=== PATIENT | female | born 1935 | race Caucasian/White ===

== ENCOUNTER → 2016-09-13 17:40 | Outpatient (CLI) | payer MEDICARE, OTHER ==
[~2016-09-13 17:40] MED LIST: BAYER CHEWABLE81 MG PO; CALCIUM 500 + D1 TAB PO; CELEBREX200 MG PO; DESERYL100 MG PO; GLUCOPHAGE850 MG PO; HYDROCHLOROTHIA50 MG PO; K-TAB10 MEQ PO; MULTI-DAY VITAM1 TAB PO; NEXIUM40 MG PO; SYNTHROID112 MCG PO; TYLENOL PM1 TAB; ZOCOR10 MG PO
== END | disposition home or self-care (01) ==
LOC: D.LABREF 17:40
DX: Z86.14 Personal history of Methicillin resistant Staphylococcus aureus infection (principal)